=== PATIENT | female | born 2000 | race American Indian/Alaskan Native ===

== ENCOUNTER 2024-12-18 19:18 | Emergency (ER) | payer OTHER, SELFPAY ==
[2024-12-18 19:19] VITALS: BMI 42.0
[2024-12-18 19:39] VITALS: BP 135/80; PULSE 63; RESP 16; TEMP 37.1; O2SAT 100
[2024-12-18] MEDS: MethylPREDNISolone SOD SUCC 62.5 MG/ML 2ML VIAL 125 MG IM (20:24)
[2024-12-18] MEDS: FAMOTIDINE 20 MG TABLET 40 MG PO (20:24)
--- NOTE | 2024-12-18 21:57 | EDNOTE_ITS ---
ED Skin Abcess FB-RME/HPI General Chief complaint: Skin/Abscess/Foreign Body Stated complaint: RASH ON CHEST AFTER POISON OAK EXPOSED Time Seen by Provider: 12/18/24 19:23 Arrival date/time: 12/18/24 19:18 This is a case of 24-year-old female who came in in the emergency room due to macular papular rashes on the chest and beneath both breasts after exposure to poison oak today with severe itchiness patient has no swelling on the face no throat swelling no drooling of saliva no shortness of breath persistence of the symptoms this patient decided to sought consult here in the emergency room Limitations: no limitations Related Data Previous Rx's ?Medication ?Instructions ?Recorded diphenhydramine HCl 2 % topical 1 applic topical TID P RN itching 12/18/24 spray #177 mL hydroxyzine pamoate 25 mg capsule 25 mg PO TID PRN itc fatou #20 caps 12/18/24 prednisone 20 mg tablet See Taper PO QDAY 5 days #5 tabs 12/18/24 triamcinolone acetonide 0.1 % 1 applic topical BID 2 w eeks #30 12/18/24 topical cream grams Allergies Allergy/AdvReac Type Severity Reaction Status Date / Time NKA* Allergy Uncoded 05/02/13 11:51 Review of Systems Review of Systems Systems Reviewed: All systems reviewed, normal except as documented Constitutional Constitutional: Reports system reviewed and no additional complaints, except as documented and Reports as per HPI Cardiovascular Cardiovascular: Reports system reviewed and no additional complaints, except as documented and Reports as per HPI Respiratory Respiratory: Reports system reviewed and no additional complaints, except as documented and Reports as per HPI Gastrointestinal Gastrointestinal: Reports system reviewed and no additional complaints, except as documented and Reports as per HPI Musculoskeletal Musculoskeletal: Reports system reviewed and no additional complaints, except as documented and Reports as per HPI Neurologic Neurologic: Reports system reviewed and no additional complaints, except as documented and Reports as per HPI Past Medical History Social History SMOKING STATUS: Never smoker ED Exam General Limitations: Present no limitations General appearance: Present alert, in no apparent distress and other (Patient is awake alert oriented not in distress nontoxic looking well-hydrated well- nourished) Head Head exam: Present atraumatic, normocephalic and normal inspection Eye Eye exam: Present normal appearance, PERRL and EOMI ENT ENT exam: Present normal exam, normal oropharynx, mucous membranes moist and other (HEENT exam is normal unremarkable no drooling of saliva no throat or facial swelling) Neck Neck exam: Present normal inspection, full ROM and trachea midline; Absent tenderness, meningismus, lymphadenopathy or thyromegaly Chest Chest inspection: Present normal inspection and symmetric chest wall rise; Absent tenderness Respiratory Respiratory exam: Present normal lung sounds bilaterally; Absent respiratory distress, wheezes, stridor, accessory muscle use or prolonged expiratory phase Cardiovascular Cardiovascular exam: Present regular rate, normal rhythm and normal heart sounds; Absent bradycardia, tachycardia, irregular rhythm, systolic murmur or diastolic murmur Abdominal Exam Abdominal exam: Present soft; Absent distention, tenderness, guarding, rebound, normal bowel sounds, diminished bowel sounds, hyperactive bowel sounds, hypoactive bowel sounds or organomegaly Extremities Exam Extremities exam: Present normal inspection and full ROM Back Exam Back exam: Present normal inspection and full ROM Neurological Exam Neurological exam: Present alert, oriented X3, CN II-XII intact, normal gait and reflexes normal; Absent motor sensory deficit Psychiatric Psychiatric exam: Present normal affect and normal mood Skin Skin exam: Present warm, dry, intact, normal color and other (With maculopapular rashes on the chest and beneath the breast nonblanching no abscess no cellulitis) Course Quality Measures none Orders Category Date Time Status DiphenhydrAMINE INJ [Benadryl Inj] Med 12/18/24 19:44 Discontinued 25 mg IM X1 ONE Famotidine [Pepcid] Med 12/18/24 19:44 Discontinued 40 mg PO X1 ONE MethylPREDNISolone.* [SoluMEDROL Inj] Med 12/18/24 19:44 Discontinued 125 mg IM X1 ONE Vital Signs Vital signs: Vital Signs Temperature 98.8 F 12/18/24 19:39 Pulse Rate 63 12/18/24 19:39 Respiratory Rate 16 12/18/24 19:39 Blood Pressure 135/80 H 12/18/24 19:39 Pulse Oximetry (%) 100 12/18/24 19:39 Oxygen Delivery Method Room Air 12/18/24 19:39 Oxygen saturation is 100% in room air Skin / Abscess / Foreign Body MDM Narrative MDM Narrative:: This is a case of 24-year-old female who came in in the emergency room due to macular papular rashes on the chest and beneath both breasts after exposure to poison oak today with severe itchiness patient has no swelling on the face no throat swelling no drooling of saliva no shortness of breath persistence of the symptoms this patient decided to sought consult here in the emergency room physical examination patient is awake alert oriented not in distress nontoxic looking well-hydrated well-nourished no facial or throat swelling HEENT exam is normal and unremarkable no drooling of saliva lungs sound is clear no crackles no rales no retraction no stridor patient noted to have maculopapular rashes on the chest and beneath both breasts nonblanching no abscess no cellulitis secondary to dermatitis or allergic reaction to poison oak no signs and symptoms of angioedema no anaphylaxis patient was given Benadryl IM Solu-Medrol IM and Pepcid after 30 minutes rash is subsided itching was resolved patient will follow-up with PCP in 2 days for reevaluation for any recurrence persistent worsening symptoms return precaution in the ER is advised patient was prescribed with Vistaril and Benadryl topical for itching triamcinolone and prednisone for dermatitis Patient was discharged with comfortable condition walking with stable gait. Patient verbalized no further complains explained diagnosis and answered patient question. Patient is comfortable with the proposed management plan including the need to follow up with his/her primary care physician and any specialist if applicable Discussed patient for any urgent condition or worsening sx, He/She needed to go to emergency room immediately or call 911. Patient acknowledge the responsibility to follow up as instructed and to monitor her/his symptoms. For any persistence of the symptoms for more than 3-5 days return precaution advised. Discussed the result of the test and was given printed discharge instruction Patient data External records reviewed:: [facility] previous records Clinical information provided by:: patient Social determinants that could affect healthcare access:: none Patient has the following chronic illnesses:: None How is presenting disease/condition affected by chronic disease/condition?: no chronic disease Evaluation data The following diagnostics were reviewed and interpreted by me:: other (specify) (None) Lab and/or radiology exams considered but not ordered:: None Interpretation Summary: None Medications / Prescriptions Medications or Prescriptions considered but not ordered:: Given Medication administrations:: Medication Administration History Discontinued Medications Diphenhydramine HCl (Diphenhydramine Inj 50 Mg/Ml Vial) 25 mg IM X1 ONE Stop: 12/18/24 19:45 Last Admin: 12/18/24 20:25 Dose: 25 mg Documented By: JENI Famotidine (Famotidine 20 Mg Tablet) 40 mg PO X1 ONE Stop: 12/18/24 19:45 Last Admin: 12/18/24 20:24 Dose: 40 mg Documented By: JENI Methylprednisolone Sodium Succinate (Methylprednisolone Sod Succ 62.5 Mg/Ml 2ml Vial) 125 mg IM X1 ONE Stop: 12/18/24 19:45 Last Admin: 12/18/24 20:24 Dose: 125 mg Documented By: JENI Given Consultations Consultation(s) initiated? (list below): No Diagnosis Skin/Abscess Differential Diagnosis: abscess of skin or subcutaneous tissue, urticaria, allergic reaction to drug, cellulitis and other (Dermatitis) Most likely diagnosis given after review of the tests above:: Allergic reaction to poison oak Admission Indicated Admission indicated?: not indicated Explain why admission is indicated or not indicated:: Not indicated Admission Request Was there a request for admission?: No Admission Attestation Admission request attestation: Not indicated Disposition Plan Disposition Plan: Discharge Discharge Attestation Discharge Attestation: The patient and all family members were given an opportunity to ask questions and understood the discharge instructions. Discharge instructions specifically effects, indications for sooner follow up or return to the emergency department, and the expected course of current diagnosis. Patient condition: Stable Discharge Plan Plan Patient Disposition: HOME (Self Care) Patient condition on transfer: Stable Prescriptions/Referrals Prescriptions/Med Rec: New hydroxyzine pamoate 25 mg capsule 25 mg PO TID PRN (Reason: itching) Qty: 20 0RF prednisone 20 mg tablet See Taper PO QDAY 5 Days Qty: 5 0RF Taper: Prednisone Taper 20 mg DAILY for 2 Days and 0 Hour 10 mg DAILY for 2 Days and 0 Hour 5 mg DAILY for 7 Days and 0 Hour diphenhydramine HCl 2 % aerosol,spray 1 applic topical TID PRN (Reason: itching) Qty: 177 0RF triamcinolone acetonide 0.1 % cream 1 applic topical BID 14 Days Qty: 30 0RF Referrals: Temporary Provider,ED [Physician, Emergency Medicine] - In 1 week Problem List Clinical Impression: Allergic dermatitis due to poison oak Patient/Caregiver Discharge Instructions Education Materials: Avoiding Poison Jelena Poison [place] ..., Poison Jelena [facility], ED General Allergic Reactions Additional Instructions: Follow-up with your primary care physician in 2 days for reevaluation wash your clothes very well to remove the poison oak worsening symptoms recurrence persistent or any emergent concern call 911 or go to the nearest emergency room take your medication as directed keep the area clean and dry Print Language: [place] Stand Alone Forms: Maryjane Award Info., Patient Portal Info Letter PA/AUDIOMETRIC TECHNICIAN Supervising Physician PA/AUDIOMETRIC TECHNICIAN Supervising Physician: Dr. Roni Vega
== END 2024-12-18 20:53 | disposition home or self-care (01) ==
LOC: SERX 20:33
PROVIDERS: Emergency Provider Emergency Medicine
DX: L23.7 Allergic contact dermatitis due to plants, except food (principal)
CPT/HCPCS: 96372; 99283; J1200; J2919; A9270